=== PATIENT | male | born 1960 | race Caucasian/White ===

== ENCOUNTER 2016-12-13 01:00 | Emergency (ER) | payer BC, MEDICAID ==
[~2016-12-13] VITALS: Ht 160 cm; Wt 59.5 kg
[2016-12-13 01:09] VITALS: Ht 160 cm; Wt 59.5 kg
--- NOTE | 2016-12-13 02:25 | ERD ---
ER Documentation Chief Complaint Date/Time DATE: 12/13/16 TIME: 02:23 Chief Complaint sp trip and fall, right arm pain/ injury, limited movement HPI 56-year-old male presents here in emergency department for complaints of right hand right forearm right elbow pain after falling on it today, fell on it this morning, is complaining of pain and swelling of affected area throbbing pain,8/ 10 scale, is worse upon movement. Patient denies any deformity. Patient denies any numbness or tingling. Patient took some Vicodin for pain with mild relief. ROS All systems reviewed and are negative except as per history of present illness. Medications Home Meds Reported Medications [none] Unknown Strength No Conflict Check 12/13/16 Allergies Allergies: Coded Allergies: No Known Allergy (Unverified , 12/13/16) PMhx/Soc Medical and Surgical Hx: pt denies Medical Hx, pt denies Surgical Hx Hx Alcohol Use: Yes (social) Hx Substance Use: Yes Hx Tobacco Use: Yes Smoking Status: Current every day smoker FmHx Family History: No coronary disease, No diabetes, No other Physical Exam Vitals Vital Signs Date Time Temp Pulse Resp B/P Pulse Ox O2 Delivery O2 Flow Rate FiO2 12/13/16 01:09 97.8 106 20 112/69 99 Physical Exam GENERAL: The patient is well developed and appropriate for usual state of health, in no apparent distress. CHEST: Clear to auscultation bilaterally. There are no rales, wheezes or rhonchi. HEART: Regular rate and rhythm. No murmurs, clicks, rubs or gallops. No S3 or S4. ABDOMEN: Soft, nontender and nondistended. Good bowel sounds. No rebound or guarding. No gross peritonitis. No gross organomegaly or masses. No Rojas sign or McBurney point tenderness. BACK: No midline or flank tenderness. EXTREMITIES: No visible patient and the right hand palmar aspect right forearm midforearm, with swelling noted, and right elbow, limitation movement of the right wrist right elbow because of the pain and swelling. No obvious deformity noted. Equal pulses bilaterally. Full range of motion of other joints of the body. Grossly neurovascularly intact. NEURO: Alert and oriented. Cranial nerves 2-12 intact. Motor strength in all 4 extremities with 5/5 strength. Sensation grossly intact. Normal speech and gait. SKIN: There is no apparent rash or petechia. The skin is warm and dry. HEMATOLOGIC AND LYMPHATIC: There is no evidence of excessive bruising or lymphedema. No gross cervical, axillary, or inguinal lymphadenopathy. Results 24 hrs Current Medications Medications (Trade) Dose Ordered Sig/Whitney Route PRN Reason Start Time Stop Time Status Last Admin Dose Admin Ibuprofen (Motrin) 600 mg ONCE ONCE PO 12/13/16 02:30 12/13/16 02:31 DC 12/13/16 02:18 Acetaminophen/ Hydrocodone Bitart ([place] ()) 1 tab ONCE ONCE PO 12/13/16 02:30 12/13/16 02:31 DC 12/13/16 02:19 Patient was given medication for pain here in emergency department, after treatment, patient verbalized feeling much better. Patient's pain is improved. PROCEDURE: XR Right Elbow. CLINICAL INDICATION: Pain TECHNIQUE: AP, lateral and oblique views of the right elbow performed. COMPARISON: None. FINDINGS: There is normal mineralization and alignment. No fracture or osseous lesion is identified. There is no significant joint space narrowing. The soft tissues are unremarkable. IMPRESSION: Unremarkable examination. RPTAT: HJES .Freddy Oneill MD, Date Time Electronically viewed and signed by .Freddy Oneill MD, MD on 12/13/2016 04:10 .S/ CC: ELI LAZO NP PROCEDURE: XR Forearm. CLINICAL INDICATION: Pain , trauma TECHNIQUE: AP and lateral views of the right forearm were obtained. COMPARISON: No prior studies are available for comparison. FINDINGS: There is a comminuted fracture of the distal ulna with approximate 2 mm ulnar displacement of the main distal fragment. IMPRESSION: Comminuted fracture of the distal ulna with approximate 2 mm ulnar displacement of the main distal fragment. RPTAT: HJES .Freddy Oneill MD, MD Date Time Electronically viewed and signed by .Freddy Oneill MD, MD on 12/13/2016 04:09 .S/ CC: ELI LAZO NP PROCEDURE: XR Hand. CLINICAL INDICATION: Pain, trauma TECHNIQUE: AP oblique and lateral views of the right hand were obtained. COMPARISON: No prior studies are available for comparison. FINDINGS: Comminuted fracture of the distal ulna with approximate 3 mm ulnar displacement of the main distal fragment. The fourth finger appears to be held in flexion at the proximal interphalangeal joint. Minimal osteoarthrosis apparent at first carpometacarpal joint. IMPRESSION: Comminuted fracture of the distal ulna with approximate 3 mm ulnar displacement of the main distal fragment. The fourth finger appears to be held in flexion at the proximal interphalangeal joint. RPTAT: HJES .Freddy Oneill MD, MD Date Time Electronically viewed and signed by .Freddy Oneill MD, MD on 12/13/2016 04:12 .S/ CC: ELI LAZO NP After receiving patients xray report, a sugar tong splint was applied on the patients left arm. After application of the splint, patient has intact sensation and circulation on distal area of the affected joint. Patient does not complain of numbness or tingling after application of the splint. Patient tolerated procedure well.Sling was given to use afterwards Procedures/MDM Medical Decision Making: Patient's pain is most likely consistent with a fracture noted in the distal ulna, also from elbow contusion and head contusion. There is no suspicion for neurovascular compromise. Patient has intact sensation and circulation of the affected extremity. There is low suspicion for septic arthritis. Patient does not have any fever. Radiology exams of the affected area does not show any dislocation. Disposition: Home. Patient is given prescription for ibuprofen for mild to moderate pain, [place] for severe pain. Patient was advised to elevate the affected area and apply ice on affected area. Patient was advised that if symptoms are worse, numbness, tingling, high fever, unable to move joint, worsening symptoms, to return to emergency department immediately. Otherwise, patient is advised to follow up with the primary care doctor in 5-7 days for reevaluation of symptoms. See orthopedic doctor for possible repair and further treatment. If the splint and sling as prescribed until seen orthopedic doctor. Departure Diagnosis: Primary Impression: Distal end of ulna fracture, closed Encounter type: initial encounter Fracture morphology: other fracture Laterality: right Qualified Code: S52.691A - Other closed fracture of distal end of right ulna, initial encounter Additional Impressions: Elbow contusion Encounter type: initial encounter Laterality: right Qualified Code: S50.01XA - Contusion of right elbow, initial encounter Hand contusion Encounter type: initial encounter Laterality: right Qualified Code: S60.221A - Contusion of right hand, initial encounter Condition: Stable Patient Instructions: Contusion, Elbow, Contusion, Hand, Fracture, Wrist [ General] Additional Instructions: Patient is given prescription for ibuprofen for mild to moderate pain, [place] for severe pain. Patient was advised to elevate the affected area and apply ice on affected area. Patient was advised that if symptoms are worse, numbness, tingling, high fever, unable to move joint, worsening symptoms, to return to emergency department immediately. Otherwise, patient is advised to follow up with the primary care doctor in 5-7 days for reevaluation of symptoms. See orthopedic doctor for possible repair and further treatment. If the splint and sling as prescribed until seen orthopedic doctor. ELI LAZO NP Dec 13, 2016 02:25
[2016-12-13] MEDS ORDERED: HYDROCODONE/APAP (10/325) TAB PO ONE (02:30)
[2016-12-13] MEDS ORDERED: IBUPROFEN 600 MG TAB PO ONE (02:30)
--- NOTE | 2016-12-13 04:09 | RADRPT ---
PROCEDURE: XR Forearm. CLINICAL INDICATION: Pain , trauma TECHNIQUE: AP and lateral views of the right forearm were obtained. COMPARISON: No prior studies are available for comparison. FINDINGS: There is a comminuted fracture of the distal ulna with approximate 2 mm ulnar displacement of the ma in distal fragment. IMPRESSION: Comminuted fracture of the distal ulna with approximate 2 mm ulnar displacement of the main distal fragment. RPTAT: HJES .Freddy Oneill MD, MD Date Time Electronically viewed and signed by .Freddy Oneill MD, on 12/13/2016 04:09 .S/
--- NOTE | 2016-12-13 04:10 | RADRPT ---
PROCEDURE: XR Right Elbow. CLINICAL INDICATION: Pain TECHNIQUE: AP, lateral and oblique views of the right elbow performed. COMPARISON: None. FINDINGS: There is normal mineralization and alignment. No fracture or osseous lesion is identified. There is no significant joint space narrowing. The soft tissues are unremarkable. IMPRESSION: Unremarkable examination. RPTAT: HJES .Freddy Oneill MD, MD Date Time Electronically viewed and signed by .Freddy Oneill MD, on 12/13/2016 04:10 .S/
--- NOTE | 2016-12-13 04:12 | RADRPT ---
PROCEDURE: XR Hand. CLINICAL INDICATION: Pain, trauma TECHNIQUE: AP oblique and lateral views of the right hand were obtained. COMPARISON: No prior studies are available for comparison. FINDINGS: Comminuted fracture of the distal ulna with approximate 3 mm ulnar displacement of the main distal f ragment. The fourth finger appears to be held in flexion at the proximal interphalangeal joint. Min imal osteoarthrosis apparent at first carpometacarpal joint. IMPRESSION: Comminuted fracture of the distal ulna with approximate 3 mm ulnar displacement of the main distal f ragment. The fourth finger appears to be held in flexion at the proximal interphalangeal joint. RPTAT: HJES .Freddy Oneill MD, MD Date Time Electronically viewed and signed by .Freddy Oneill MD, on 12/13/2016 04:12 .S/
[2016-12-13] MEDS ORDERED: IBUP-1542 PO (04:29)
[2016-12-13] MEDS ORDERED: HYDR-906 PO (04:29)
== END 2016-12-13 05:01 | disposition home or self-care (01) ==
LOC: FTE 01:00
DX: S52.691A Other fracture of lower end of right ulna, initial encounter for closed fracture (principal); S50.01XA Contusion of right elbow, initial encounter; S60.221A Contusion of right hand, initial encounter; F17.210 Nicotine dependence, cigarettes, uncomplicated; W01.0XXA Fall on same level from slipping, tripping and stumbling without subsequent striking against object, initial encounter; Y92.9 Unspecified place or not applicable
CPT/HCPCS: 29125; 73080; 73090; 73130; Z7610

== ENCOUNTER 2017-06-26 19:09 | Inpatient (IN) | payer MEDICAID ==
[~2017-06-26] VITALS: Ht 170.2 cm; Wt 58.1 kg
[~2017-06-26 19:09] MED LIST: HYDR-906 PO; IBUP-1542 PO
[2017-06-26] MEDS ORDERED: SODIUM CHLORIDE 0.9% 1L BAG IV* STA (21:00)
[2017-06-26] MEDS ORDERED: ACETAMINOPHEN 500 MG TAB PO STA (21:01)
[2017-06-26] MEDS ORDERED: KETOROLAC 30 MG INJ IV STA (21:01)
--- NOTE | 2017-06-26 21:07 | ERD ---
ER Documentation Chief Complaint Chief Complaint Cough, body aches, flank pain HPI The patient is a 56-year-old male who presents to the Emergency Department with complaint of fevers, body aches, chills, cough and flank pain. The patient reports that in symptoms initially began 2-3 days ago, with onset of myalgias, and bilateral, aching, constant flank pain. He also reports associated productive cough for the past 2 days, with thick yellow-colored sputum. He admits to associated fevers, chills and generalized weakness. Denies any hemoptysis. Denies chest pain, palpitations or shortness of breath. Denies lower extremity edema, calf swelling or calf tenderness. Denies headache, dizziness, visual changes, sore throat, neck pain, neck stiffness, new rashes, ear pain. Denies abdominal pain, nausea, vomiting, diarrhea. Denies black or bloody stools. Denies dysuria, hematuria, urethral discharge, testicular pain or swelling. The patient reports that he was recently visiting a friend who is in hospice, who was recently diagnosed with pneumonia. His symptoms began shortly after that visit. ROS All systems reviewed and are negative except as per history of present illness. Medications Home Meds Active Scripts Hydrocodone/Acetaminophen ([place] 5-325 Tablet) 1 Each Tablet, 1 TAB PO Q6H Y for SEVERE PAIN LEVEL 7-10, #20 TAB Prov:ELI LAZO NP 12/13/16 Ibuprofen* (Motrin*) 600 Mg Tab, 600 MG PO Q6H Y for PAIN AND OR ELEVATED TEMP, #30 TAB Prov:ELI LAZO NP 12/13/16 Reported Medications [none] Unknown Strength No Conflict Check 12/13/16 Allergies Allergies: Coded Allergies: No Known Allergy (Unverified , 12/13/16) PMhx/Soc Medical and Surgical Hx: pt denies Medical Hx, pt denies Surgical Hx Hx Alcohol Use: Yes (social) Hx Substance Use: Yes Hx Tobacco Use: Yes Smoking Status: Current every day smoker Physical Exam Vitals Vital Signs Date Time Temp Pulse Resp B/P Pulse Ox O2 Delivery O2 Flow Rate FiO2 06/27/17 00:28 78 16 115/81 97 Nasal Cannula 2.0 06/26/17 22:45 99.9 102 20 116/86 96 Nasal Cannula 2.0 06/26/17 21:22 Nasal Cannula 2 06/26/17 19:25 100.5 139 22 117/75 92 Physical Exam GENERAL: Well-developed, well-nourished, male, in no acute distress. Ill- appearing. HEENT: Head is normocephalic, atraumatic. No scleral pallor or icterus. Pupils equal, round and reactive to light. Extraocular movements intact. Conjunctiva pink. Bilaterally tympanic membranes are clear with no evidence of erythema, effusion or dulling of the light reflex. Moist mucous membranes. No pharyngeal erythema or exudates. NECK: Supple. No masses, no tenderness, no lymphadenopathy. Trachea midline. No nuchal rigidity. No meningismus. RESPIRATORY: Decreased breath sounds at the bases with few rales bilaterally. No wheezing. Symmetrical expansion. Normal respiratory effort. CARDIOVASCULAR: Tachycardic. Regular rhythm. S1 and S2 normal. Distal pulses are palpable, 2+ bilaterally. Capillary refill is less than 2 seconds. GASTROINTESTINAL: Abdomen is soft, non-tender, and non-distended. No guarding, no rebound tenderness. Normal bowel sounds. No gross peritonitis. FLANK: No CVA tenderness. BACK: No midline tenderness. EXTREMITIES: No clubbing, cyanosis, or edema. Normal skin perfusion. Moving all extremities. Muscle tone is normal. No focal swelling or erythema. NEUROLOGIC: The patient is alert, awake, and oriented x 3. No focal neurologic deficits. INTEGUMENT: Skin is intact. Warm and dry. No rashes, no petechiae present. Normal turgor. PSYCHIATRIC: Cooperative. Appropriate. Result Diagram: 06/26/17 2100 06/26/17 2100 Results 24 hrs Laboratory Tests Test 06/26/17 21:00 06/26/17 21:15 06/26/17 23:00 White Blood Count 16.010^3/ul Red Blood Count 4.9610^6/ul Hemoglobin 14.9g/dl Hematocrit 44.1% Mean Corpuscular Volume 88.9fl Mean Corpuscular Hemoglobin 30.0pg Mean Corpuscular Hemoglobin Concent 33.8g/dl Red Cell Distribution Width 12.7% Platelet Count 63388^3/UL Mean Platelet Volume 10.4fl Neutrophils % 83.3% Lymphocytes % 9.5% Monocytes % 6.3% Eosinophils % 0.0% Basophils % 0.3% Nucleated Red Blood Cells % 0.0/100WBC Neutrophils # 13.310^3/ul Lymphocytes # 1.510^3/ul Monocytes # 1.010^3/ul Eosinophils # 0.010^3/ul Basophils # 0.010^3/ul Nucleated Red Blood Cells # 0.010^3/ul Prothrombin Time 13.0Sec Prothrombin Time Ratio 1.0 INR International Normalized Ratio 0.98 Activated Partial Thromboplast Time 29.8Sec Sodium Level 138mmol/L Potassium Level 4.2mmol/L Chloride Level 99mmol/L Carbon Dioxide Level 27mmol/L Anion Gap 16 Blood Urea Nitrogen 16mg/dl Creatinine 1.00mg/dl Glucose Level 123mg/dl Calcium Level 9.3mg/dl Total Bilirubin 1.3mg/dl Direct Bilirubin 0.00mg/dl Indirect Bilirubin 1.3mg/dl Aspartate Amino Transf (AST/SGOT) 38IU/L Alanine Aminotransferase (ALT/SGPT) 78IU/L Alkaline Phosphatase 96IU/L Troponin I < 0.012ng/ml Total Protein 8.4g/dl Albumin 4.3g/dl Globulin 4.10g/dl Albumin/Globulin Ratio 1.04 Urine Color DAVID Urine Clarity CLEAR Urine pH 5.0 Urine Specific [place] 1.024 Urine Ketones TRACEmg/dL Urine Nitrite NEGATIVEmg/dL Urine Bilirubin NEGATIVEmg/dL Urine Urobilinogen 2+mg/dL Urine Leukocyte Esterase NEGATIVELeu/ul Urine Microscopic RBC 0/HPF Urine Microscopic WBC 1/HPF Urine Mucus FEW/HPF Urine Hemoglobin NEGATIVEmg/dL Urine Glucose NEGATIVEmg/dL Urine Total Protein 1+mg/dl Lactic Acid Level 2.1mmol/L 1.0mmol/L Current Medications Medications (Trade) Dose Ordered Sig/Whitney Route PRN Reason Start Time Stop Time Status Last Admin Dose Admin Sodium Chloride (NS) 1,780 ml BOLUS OVER 2 HOURS STAT IV* 06/26/17 21:00 06/26/17 21:02 DC 06/26/17 21:23 Ketorolac Tromethamine (Toradol) 30 mg ONCE STAT IV 06/26/17 21:01 06/26/17 21:02 DC 06/26/17 21:23 Acetaminophen 1000 mg 1,000 mg ONCE STAT PO 06/26/17 21:01 06/26/17 21:02 DC 06/26/17 21:23 Ceftriaxone Sodium 50 ml @ 100 mls/hr ONCE STAT IVPB 06/26/17 22:03 06/26/17 22:33 DC 06/26/17 22:12 Azithromycin (Zithromax 500mg/ NS (Pmx)) 250 ml @ 250 mls/hr ONCE ONCE IVPB 06/26/17 22:30 06/26/17 23:29 DC 06/26/17 22:45 Ondansetron HCl (Zofran Inj) 4 mg BRIDGE ORDER PRN IV NAUSEA AND/OR VOMITING 06/26/17 22:30 06/27/17 22:29 Acetaminophen (Tylenol Tab) 650 mg ER BRIDGE PRN PO MILD PAIN/FEVER 06/26/17 22:30 06/27/17 22:29 Morphine Sulfate (morphine) 4 mg ONCE STAT IV 06/26/17 22:57 06/26/17 22:58 DC 06/26/17 23:00 Procedures/MDM Diagnostic Tests and Interpretation: PROCEDURE: XR Chest. CLINICAL INDICATION: Possible sepsis. TECHNIQUE: Single frontal view of the chest. COMPARISON: None. FINDINGS:The cardiomediastinal silhouette is within normal limits. Airspace disease at the inferior segments of the right upper lobe. Mild left lung base atelectasis versus airspace disease.. No signs of pleural fluid or pneumothorax are seen. The osseous structures and soft tissues are unremarkable. IMPRESSION:Pneumonia at the inferior segments of the right upper lobe. Physician Sai Date Time Electronically viewed and signed by Physician Sai on 06/26/2017 22:53 PROCEDURE: CT Abdomen and Pelvis without contrast. CLINICAL INDICATION: Flank pain. TECHNIQUE: A CT scan of the abdomen and pelvis was performed without intravenous contrast. Coronal and sagittal reformatted images were generated. Images were reviewed on a high-resolution PACS workstation. CTDIvol: 7.43 mGy. DLP: 351.77 mGy-cm. One or more of the following dose reduction techniques were used: - Automated exposure control. - Adjustment of the mA and/or kV according to patient size. - Use of iterative reconstruction technique. COMPARISON: None. FINDINGS: There are tree in bud nodules and patchy airspace opacities in the right middle and bilateral lower lobes. Evaluation of the abdominal and pelvic viscera is limited by the lack of oral and intravenous contrast. The liver is unremarkable. There is layering high attenuation in the gallbladder. The common bile duct is not dilated. The spleen is not enlarged. No pancreatic lesion is identified and there is no pancreatic ductal dilatation. The adrenal glands are unremarkable. The kidneys are normal in size. There is no perinephric fat stranding. No hydronephrosis is seen. There is a 3 mm nonobstructing stone in the right kidney. The small and large bowel are normal in caliber. There is no bowel wall thickening. The appendix is normal. The urinary bladder is unremarkable. The pelvic organs are within normal limits. No lymphadenopathy is identified. There is no ascites. No pneumoperitoneum is seen. There are minimal arterial calcifications. No suspicious osseous lesion is idenitified. IMPRESSION: 1. Tree in bud nodules and patchy airspace opacities in the right middle and bilateral lower lobes, suspicious for bronchopneumonia. 2. No intra-abdominal inflammation, mass, or lymphadenopathy. 3. No hydronephrosis. There is a 3 mm nonobstructing right renal stone. 4. Normal appendix. .Judah Escalera MD, MD Date Time Electronically viewed and signed by .Judah Escalera MD, on 06/26/2017 21:52 EKG Reviewed and interpreted by: Dr. Lara EKG Interpretation: Sinus tachycardia. 115 bpm. Normal axis. No ST-segment elevations. No ectopy. Medical Decision Making: This is a 56-year-old male presenting to the Emergency Department with complaint of fevers, productive cough and flank pain. On physical examination, he had rales to the lower lung hadley, with mildly decreased breath sounds. He was febrile, tachycardic on arrival, with O2 saturation of 92% on room air. Chest x-ray revealed airspace disease at the inferior segments of the right upper lobe, consistent with pneumonia. CT imaging reveal tree in bud nodules and patchy airspace opacities in the right middle and bilateral lower lobes, suspicious for bronchopneumonia. Patient was wiley-cultured. 30 cc/kg crystalloid fluid bolus administered. Empiric antibiotics, Rocephin and Azithromycin, were administered. Patient had leukocytosis of 16,000. Lactic acid was 2.1, consistent with severe sepsis. Otherwise, no evidence of septic shock or respiratory distress. At this time he will be admitted to panel/hospitalist, Dr. Cohn, for further evaluation and treatment. Patient's infectious symptoms have not stabilized and the patient is at risk of rapid decompensation. The patient will be admitted for careful hydration, antibiotic therapy, and infectious source control. Severe Sepsis Assessment: Infectious Source: Pneumonia End organ damage indicated by: Lactate > 2.0 mmol/L Severe Sepsis Management: Blood Cultures X 2 before broad spectrum antibiotics initiated within 3 hours of recognition. 30 ml/kg NS bolus Completed Initial Lactate: 2.1 Repeat Lactate 1.0 Critical Care: Time: 40 minutes Treatments/Evaluations: Emergent fluid management, while maintaining close respiratory support. Immediate broad spectrum antibiotic therapy. Simultaneous assessment for possible sources in order to direct therapy. Consideration for invasive and chemical support to prevent respiratory or cardiac collapse. Septic Shock Assessment (1 hour post 30 ml/kg fluid bolus): Hypotension (SBP < 90 or 40 mmHg drop, MAP < 65): No Lactic acid > 4.0 No Accepting Care Team: Current data and ongoing care discussed. Time: 22:30 Primary Provider: Dr. Cohn Outstanding Data: Culture results Departure Diagnosis: Primary Impression: Severe sepsis Additional Impression: Pneumonia Pneumonia type: due to unspecified organism Laterality: right Lung location : upper lobe of lung Qualified Code: J18.1 - Pneumonia of right upper lobe due to infectious organism Condition: Serious AMERICO YOUNG PA-C Jun 26, 2017 21:07 AMERICO YOUNG PA-C Jun 26, 2017 21:07
[2017-06-26 21:25] LABS: BASOPHILS % 0.3 % (0.0-2.0); HEMATOCRIT 44.1 % (42.0-52.0); HEMOGLOBIN 14.9 g/dl (14.0-18.0); LYMPHOCYTES # 1.5 10^3/ul (0.8-2.9); LYMPHOCYTES % 9.5 % (15.0-51.0); MEAN CORPUSCULAR HGB CONC 33.8 g/dl (32.0-37.0); MEAN CORPUSCULAR VOLUME 88.9 fl (82.0-101.0); MEAN PLATELET VOLUME 10.4 fl (7.4-10.4); MONOCYTES % 6.3 % (0.0-11.0); NEUTROPHIL # 13.3 10^3/ul (1.6-7.5); NEUTROPHILS % 83.3 % (39.0-77.0); PLATELET COUNT 225 10^3/UL (140-415); RED BLOOD COUNT 4.96 10^6/ul (4.70-6.10); RED CELL DISTRIBUTION WIDTH 12.7 % (11.5-14.5)
[2017-06-26 21:31] LABS: ADD UMIC YES; UR ASCORBIC ACID NEGATIVE (NEGATIVE); UR BILIRUBIN (Dip) NEGATIVE (NEGATIVE); UR BLOOD (Dip) NEGATIVE (NEGATIVE); UR CLARITY CLEAR (CLEAR); UR COLOR AMBER (YELLOW); UR GLUCOSE (Dip) NEGATIVE (NEGATIVE); UR KETONES (Dip) TRACE mg/dL (NEGATIVE); UR LEUKOCYTE ESTERASE (Dip) NEGATIVE Leu/ul (NEGATIVE); UR MUCUS FEW /HPF (NONE SEEN); UR NITRITE (Dip) NEGATIVE (NEGATIVE); UR RBC 0 /HPF (0-5); UR SPECIFIC GRAVITY (Dip) 1.024 (1.003-1.030); UR TOTAL PROTEIN (Dip) 1+ mg/dl (NEGATIVE); UR UROBILINOGEN (Dip) 2+ mg/dL (NEGATIVE)
[2017-06-26 21:46] LABS: INR 0.98
[2017-06-26 21:47] LABS: PARTIAL THROMBOPLASTIN TIME 29.8 Sec (25.0-35.0)
--- NOTE | 2017-06-26 21:53 | RADRPT ---
PROCEDURE: CT Abdomen and Pelvis without contrast. CLINICAL INDICATION: Flank pain. TECHNIQUE: A CT scan of the abdomen and pelvis was performed without intravenous contrast. Tolent[place] l and sagittal reformatted images were generated. Images were reviewed on a high-resolution PACS wor kstation. CTDIvol: 7.43 mGy. DLP: 351.77 mGy-cm. One or more of the following dose reduction techniques were used: - Automated exposure control. - Adjustment of the mA and/or kV according to patient size. - Use of iterative reconstruction technique. COMPARISON: None. FINDINGS: There are tree in bud nodules and patchy airspace opacities in the right middle and bilateral lower lobes. Evaluation of the abdominal and pelvic viscera is limited by the lack of oral and intravenous contra st. The liver is unremarkable. There is layering high attenuation in the gallbladder. The common bile du ct is not dilated. The spleen is not enlarged. No pancreatic lesion is identified and there is no pa ncreatic ductal dilatation. The adrenal glands are unremarkable. The kidneys are normal in size. There is no perinephric fat stranding. No hydronephrosis is seen. Th ere is a 3 mm nonobstructing stone in the right kidney. The small and large bowel are normal in caliber. There is no bowel wall thickening. The appendix is normal. The urinary bladder is unremarkable. The pelvic organs are within normal limits. No lymphadenopathy is identified. There is no ascites. No pneumoperitoneum is seen. There are minima l arterial calcifications. No suspicious osseous lesion is idenitified. IMPRESSION: 1. Tree in bud nodules and patchy airspace opacities in the right middle and bilateral lower lobes, suspicious for bronchopneumonia. 2. No intra-abdominal inflammation, mass, or lymphadenopathy. 3. No hydronephrosis. There is a 3 mm nonobstructing right renal stone. 4. Normal appendix. RPTAT: HTAR .Judah Escalera MD, Date Time Electronically viewed and signed by .Judah Escalera MD, on 06/26/2017 21:52 .R/
[2017-06-26 21:54] LABS: ALANINE AMINOTRANSFERASE 78 IU/L (13-69); ALBUMIN 4.3 g/dl (3.3-4.9); ALBUMIN/GLOBULIN RATIO 1.04; ALKALINE PHOSPHATASE 96 IU/L (42-121); ANION GAP 16 (8-16); ASPARTATE AMINO TRANSFERASE 38 IU/L (15-46); BILIRUBIN,INDIRECT 1.3 mg/dl (0-1.1); BILIRUBIN,TOTAL 1.3 mg/dl (0.2-1.3); BLOOD UREA NITROGEN 16 mg/dl (7-20); CALCIUM 9.3 mg/dl (8.4-10.2); CARBON DIOXIDE 27 mmol/L (21-31); CHLORIDE 99 mmol/L (97-110); GLUCOSE 123 mg/dl (70-220); POTASSIUM 4.2 mmol/L (3.5-5.1); SODIUM 138 mmol/L (135-144); TOTAL PROTEIN 8.4 g/dl (6.1-8.1)
[2017-06-26] MEDS ORDERED: CEFTRIAXONE 1 GM/50 ML (PMX) 50 ML IVPB STA (22:03)
[2017-06-26 22:06] LABS: TROPONIN-I < 0.012 ng/ml (0.00-0.12)
[2017-06-26] MEDS ORDERED: ACETAMINOPHEN 325 MG TAB PO PRN (22:30)
[2017-06-26] MEDS ORDERED: AZITHROMYCIN 500MG/NS (PMX) 250 ML IVPB ONE (22:30)
[2017-06-26] MEDS ORDERED: ONDANSETRON 4 MG INJ IV PRN (22:30)
[2017-06-26 22:45] VITALS: TEMP 99.9
--- NOTE | 2017-06-26 22:53 | RADRPT ---
PROCEDURE: XR Chest. CLINICAL INDICATION: Possible sepsis. TECHNIQUE: Single frontal view of the chest. COMPARISON: None. FINDINGS: The cardiomediastinal silhouette is within normal limits. Airspace disease at the inferior segments of the right upper lobe. Mild left lung base atelectasis versus airspace disease.. No signs of pleur al fluid or pneumothorax are seen. The osseous structures and soft tissues are unremarkable. IMPRESSION: Pneumonia at the inferior segments of the right upper lobe. RPTAT: UU Physician Sai Date Time Electronically viewed and signed by Physician Sai on 06/26/2017 22:53 RS/
[2017-06-26] MEDS ORDERED: morphine 4 MG/ML VIAL IV STA (22:57)
[2017-06-27 00:45] VITALS: BP 119/74; PULSE 95; RESP 19; Ht 170.2 cm; Wt 58.1 kg
[2017-06-27] MEDS ORDERED: ACETAMINOPHEN 325 MG TAB PO PRN (01:30)
[2017-06-27] MEDS ORDERED: ONDANSETRON 4 MG INJ IV PRN (01:30)
[2017-06-27] MEDS ORDERED: IBUPROFEN 200 MG TAB PO ONE (01:30)
[2017-06-27] MEDS ORDERED: IBUPROFEN 400 MG TAB ONE (01:45)
[2017-06-27] MEDS: morphine 4 MG/ML VIAL IV PRN ×2 (01:54→17:12)
[2017-06-27] MEDS ORDERED: ACETYLCYSTEINE 20% 4 ML VIAL NEB PRN (02:30)
[2017-06-27] MEDS ORDERED: AL HYDROX/MG HYDROX/SIMETH 30 ML CUP PO ONE (02:30)
[2017-06-27] MEDS ORDERED: ALBUTEROL/IPRATROPIUM (NEB) 3 ML AMP HHN PRN ×2 (02:30→10:00)
[2017-06-27] MEDS ORDERED: ZOLPIDEM 5 MG TAB PO ONE (03:00)
[2017-06-27 04:00] VITALS: BP 124/70; PULSE 90; RESP 18
[2017-06-27 05:11] LABS: BASOPHILS % 0.2 % (0.0-2.0); EOSINOPHILS % 0.1 % (0.0-7.0); HEMATOCRIT 37.5 % (42.0-52.0); HEMOGLOBIN 12.5 g/dl (14.0-18.0); LYMPHOCYTES # 1.7 10^3/ul (0.8-2.9); LYMPHOCYTES % 12.7 % (15.0-51.0); MEAN CORPUSCULAR HGB CONC 33.3 g/dl (32.0-37.0); MEAN CORPUSCULAR VOLUME 89.9 fl (82.0-101.0); MEAN PLATELET VOLUME 11.4 fl (7.4-10.4); MONOCYTES % 7.6 % (0.0-11.0); NEUTROPHIL # 10.3 10^3/ul (1.6-7.5); NEUTROPHILS % 78.6 % (39.0-77.0); PLATELET COUNT 181 10^3/UL (140-415); RED BLOOD COUNT 4.17 10^6/ul (4.70-6.10); RED CELL DISTRIBUTION WIDTH 12.9 % (11.5-14.5); WHITE BLOOD COUNT 13.1 10^3/ul (4.8-10.8)
[2017-06-27 05:37] LABS: CALCIUM 8.3 mg/dl (8.4-10.2); CREATININE 0.9 mg/dl (0.61-1.24); MAGNESIUM 1.9 mg/dl (1.7-2.5); PHOSPHORUS 2.8 mg/dl (2.5-4.9); POTASSIUM 3.8 mmol/L (3.5-5.1)
--- NOTE | 2017-06-27 05:58 | HP ---
Date/Time of Note Date/Time of Note DATE: 06/27/17 TIME: 05:52 Assessment/Plan VTE Prophylaxis VTE Prophylaxis Intervention: SCD's Lines/Catheters IV Catheter Type (from [facility]): Saline Lock Urinary Cath still in place: No Assessment/Plan Assessment/Plan ASSESSMENT 56-year-old male presenting with cough, fever, generalized body ache was found to be septic from pneumonia PLAN IV antibiotic Follow-up culture results including respiratory culture if possible Supplemental oxygen and breathing treatments as needed HPI/ROS Admit Date/Time Admit Date/Time Jun 26, 2017 at 22:27 Hx of Present Illness This is a 56-year-old male with no significant past medical history who presented emergency department complaining of cough, fever, generalized body ache. Symptoms started about 3 days ago and has been progressively getting worse. He also reported pain in bilateral flank area. When he presented to the ER, he was febrile with a temperature of 100.5 and tachycardic with a heart rate of 139. Chest x-ray shows right-sided pneumonia. Urinalysis is negative for UTI. CT abdomen/pelvis shows findings of bronchopneumonia and a 3 mm nonobstructing calculus in the right renal pole. Labs shows WBC of 16,000. PMH/Family/Social Social History Smoking Status: Never smoker Exam/Review of Systems Vital Signs Vitals Vital Signs Date Time Temp Pulse Resp B/P Pulse Ox O2 Delivery O2 Flow Rate FiO2 06/27/17 02:45 103 21 96 Nasal Cannula 2.0 06/27/17 00:45 98.1 119/74 Intake and Output 06/26/17 06/26/17 06/27/17 14:59 22:59 06:59 Intake Total 720 ml Output Total 600 ml Balance 120 ml Exam Constitutional: other (No acute distress) Head: atraumatic, normocephalic Eyes: EOMI, PERRL Respiratory: other (Diminished breath sounds on the right lung base.) Gastrointestinal: soft, tender Extremities: normal pulses Labs Result Diagram: 06/27/172 06/26/17 2100 Medications Medications Current Medications Morphine Sulfate (morphine) 3 mg Q4 PRN IV PAIN Last administered on 06/27/17t 01:54; Admin Dose 3 MG; Start 06/27/17 at 01:30 Acetaminophen (Tylenol Tab) 650 mg Q6 PRN PO PAIN AND OR ELEVATED TEMP; Start 06/27/17 at 01:30 Ondansetron HCl 4 mg 4 mg Q6H PRN IV NAUSEA AND/OR VOMITING; Start 06/27/17 at 01:30 Levofloxacin/ Dextrose (Levaquin 500mg/ D5W 100 ml (Pmx)) 100 ml @ 100 mls/hr Q24H IVPB ; Start 06/27/17 at 09:00 Famotidine (Pepcid) 20 mg BID PO ; Start 06/27/17 at 09:00 ODETTE NICHOLSON MD Jun 27, 2017 05:58
[2017-06-27 08:30] VITALS: BP 116/80; RESP 18
[2017-06-27] MEDS: LEVOFLOXACIN 500MG/D5W (PMX) 100 ML IVPB SCH (08:45)
[2017-06-27] MEDS: FAMOTIDINE 20 MG TAB PO SCH ×2 (08:45→20:52)
--- NOTE | 2017-06-27 10:01 | PN ---
Date/Time of Note Date/Time of Note DATE: 06/27/17 TIME: 10:01 Assessment/Plan VTE Prophylaxis VTE Prophylaxis Intervention: ambulation, SCD's Lines/Catheters IV Catheter Type (from [facility]): Saline Lock Urinary Cath still in place: No Assessment/Plan Chief Complaint/Hosp Course 56-year-old male presenting with cough, fever, generalized body ache who found to have pneumonia per imaging. 1. Bronchopneumonia -Continue current antibiotic regimen with addition of kitobv-yul-[id number] bronchodilators and cough medications. Follow-up final cultures and consider ID if indicated. 2. Sepsis secondary to #1. Improving. Treatment as above. 3. Nicotine abuse. -Cessation advised. 4. Methamphetamine abuse. -Cessation advised. Plan: Follow-up with cultures. Continue antibiotics. Monitor for clinical improvement symptoms. Patient was seen in collaboration with . Problems: Subjective 24 Hr Interval Summary Free Text/Dictation Patient with cough. He also had episode of nonbilious, nonbloody vomiting this morning. Patient also had nausea. He denied any chest pain, palpitation, shortness of breath or other constitutional symptoms. Exam/Review of Systems Vital Signs Vitals Vital Signs Date Time Temp Pulse Resp B/P Pulse Ox O2 Delivery O2 Flow Rate FiO2 06/27/17 08:30 98.8 67 18 116/80 96 06/27/17 07:47 2.0 06/27/17 04:00 Room Air Intake and Output 06/26/17 06/26/17 06/27/17 14:59 22:59 06:59 Intake Total 720 ml Output Total 600 ml Balance 120 ml Exam General: Thin built, chronically ill looking male, not in any acute distress . HEENT: Normocephalic, Atraumatic, No laceration or hematoma; Eyes: PEERL, Conjunctiva clear, Anicteric sclera Neck: Supple without any lymphadenopathy, nontender, no JVD, no carotid bruits, trachea midline, no thyromegaly Cardiac: S1, S2 auscultated, regular rhythm and rate, no mumurs or gallop Pulmonary: Diminished breath sound bibasilar. Chest clear to auscultation bilaterally, no adventitious breath sounds GI: Abdomen normal to inspection. Soft, non tender, non- distended, no masses, no rebound tenderness or guarding. Bowel sounds active on all four quadrants Genitourinary: Deferred Extremities: No cyanosis, clubbing, or edema. Pulses [2+] bilaterally. Full ROM on all four extremities. No focal weakness appreciated. Neurologic: Alert to person, place, time, and situation. Affect appropriate, intact sensation. Skin: Clean,dry, and intact. No ecchymosis, no rashes, or lesions Results Result Diagram: 06/27/17 0422 06/27/17 0422 Results 24 hrs Laboratory Tests Test 06/26/17 21:00 06/26/17 21:15 06/26/17 23:00 06/27/17 02:10 White Blood Count 16.0 H Red Blood Count 4.96 Hemoglobin 14.9 Hematocrit 44.1 Mean Corpuscular Volume 88.9 Mean Corpuscular Hemoglobin 30.0 Mean Corpuscular Hemoglobin Concent 33.8 Red Cell Distribution Width 12.7 Platelet Count 225 Mean Platelet Volume 10.4 Neutrophils % 83.3 H Lymphocytes % 9.5 L Monocytes % 6.3 Eosinophils % 0.0 Basophils % 0.3 Nucleated Red Blood Cells % 0.0 Neutrophils # 13.3 H Lymphocytes # 1.5 Monocytes # 1.0 H Eosinophils # 0.0 Basophils # 0.0 Nucleated Red Blood Cells # 0.0 Prothrombin Time 13.0 Prothrombin Time Ratio 1.0 INR International Normalized Ratio 0.98 Activated Partial Thromboplast Time 29.8 Sodium Level 138 Potassium Level 4.2 Chloride Level 99 Carbon Dioxide Level 27 Anion Gap 16 Blood Urea Nitrogen 16 Creatinine 1.00 Glucose Level 123 Calcium Level 9.3 Total Bilirubin 1.3 Direct Bilirubin 0.00 Indirect Bilirubin 1.3 H Aspartate Amino Transf (AST/SGOT) 38 Alanine Aminotransferase (ALT/SGPT) 78 H Alkaline Phosphatase 96 Troponin I < 0.012 Total Protein 8.4 H Albumin 4.3 Globulin 4.10 H Albumin/Globulin Ratio 1.04 Urine Color DAVID Urine Clarity CLEAR Urine pH 5.0 Urine Specific [place] Level 1.024 Urine Ketones TRACE A Urine Nitrite NEGATIVE Urine Bilirubin NEGATIVE Urine Urobilinogen 2+ H Urine Leukocyte Esterase NEGATIVE Urine Microscopic RBC 0 Urine Microscopic WBC 1 Urine Mucus FEW A Urine Hemoglobin NEGATIVE Urine Glucose NEGATIVE Urine Total Protein 1+ H Lactic Acid Level 2.1 H 1.0 1.6 Test 06/27/17 04:22 White Blood Count 13.1 H Red Blood Count 4.17 L Hemoglobin 12.5 L Hematocrit 37.5 L Mean Corpuscular Volume 89.9 Mean Corpuscular Hemoglobin 30.0 Mean Corpuscular Hemoglobin Concent 33.3 Red Cell Distribution Width 12.9 Platelet Count 181 Mean Platelet Volume 11.4 H Neutrophils % 78.6 H Lymphocytes % 12.7 L Monocytes % 7.6 Eosinophils % 0.1 Basophils % 0.2 Nucleated Red Blood Cells % 0.0 Neutrophils # 10.3 H Lymphocytes # 1.7 Monocytes # 1.0 H Eosinophils # 0.0 Basophils # 0.0 Nucleated Red Blood Cells # 0.0 Sodium Level 140 Potassium Level 3.8 Chloride Level 105 Carbon Dioxide Level 27 Anion Gap 12 Blood Urea Nitrogen 15 Creatinine 0.90 Glucose Level 127 Calcium Level 8.3 L Phosphorus Level 2.8 Magnesium Level 1.9 Medications Medications Current Medications Morphine Sulfate (morphine) 3 mg Q4 PRN IV PAIN Last administered on 06/27/17 01:54; Admin Dose 3 MG; Start 06/27/17 at 01:30 Acetaminophen (Tylenol Tab) 650 mg Q6 PRN PO PAIN AND OR ELEVATED TEMP; Start 06/27/17 at 01:30 Ondansetron HCl 4 mg 4 mg Q6H PRN IV NAUSEA AND/OR VOMITING Last administered on 06/27/17 09:57; Admin Dose 4 MG; Start 06/27/17 at 01:30 Levofloxacin/ Dextrose (Levaquin 500mg/ D5W 100 ml (Pmx)) 100 ml @ 100 mls/hr Q24H IVPB Last administered on 06/27/17 08:45; Admin Dose 100 MLS/HR; Start 06/27/17 at 09:00 Famotidine (Pepcid) 20 mg BID PO Last administered on 06/27/17 08:45; Admin Dose 20 MG; Start 06/27/17 at 09:00 Guaifenesin/ Dextromethorphan 10 ml 10 ml Q4H PRN PO cough; Start 06/27/17 at 10:00; Status UNV Sodium Chloride (NS) 1,000 ml @ 75 mls/hr [id number] IV ; Start 06/27/17 at 10:00 ; Status UNV Metoclopramide HCl (Reglan) 10 mg Q6 IV ; Start 06/27/17 at 12:00; Status UNV VELÁZQUEZDANIELA RICHARDSON NP Jun 27, 2017 10:01
[2017-06-27] MEDS: SOD CHLORIDE 0.9% 1,000 ML IV SCH ×2 (10:44→23:20)
[2017-06-27] MEDS: METOCLOPRAMIDE 10 MG INJ IV SCH ×2 (11:34→17:12)
[2017-06-27] MEDS ORDERED: IBUPROFEN 600 MG TAB NGT PRN (12:00)
[2017-06-27 16:00] VITALS: BP 92/57; RESP 18
[2017-06-27 20:43] VITALS: BP 91/57; RESP 20
[2017-06-28] MEDS: METOCLOPRAMIDE 10 MG INJ IV SCH ×4 (01:09→17:38)
[2017-06-28 02:19] VITALS: BP 100/70; RESP 18
[2017-06-28 05:09] LABS: BASOPHILS % 0.3 % (0.0-2.0); EOSINOPHILS # 0.1 10^3/ul (0.0-0.5); EOSINOPHILS % 1.1 % (0.0-7.0); HEMATOCRIT 38.3 % (42.0-52.0); HEMOGLOBIN 12.5 g/dl (14.0-18.0); LYMPHOCYTES # 1.8 10^3/ul (0.8-2.9); LYMPHOCYTES % 19.5 % (15.0-51.0); MEAN CORPUSCULAR HGB CONC 32.6 g/dl (32.0-37.0); MEAN CORPUSCULAR VOLUME 88.9 fl (82.0-101.0); MEAN PLATELET VOLUME 10.6 fl (7.4-10.4); MONOCYTE # 0.8 10^3/ul (0.3-0.9); MONOCYTES % 8.4 % (0.0-11.0); NEUTROPHIL # 6.6 10^3/ul (1.6-7.5); NEUTROPHILS % 70.2 % (39.0-77.0); PLATELET COUNT 250 10^3/UL (140-415); RED BLOOD COUNT 4.31 10^6/ul (4.70-6.10); RED CELL DISTRIBUTION WIDTH 12.7 % (11.5-14.5); WHITE BLOOD COUNT 9.4 10^3/ul (4.8-10.8)
[2017-06-28 05:39] LABS: CALCIUM 8.6 mg/dl (8.4-10.2); CREATININE 0.72 mg/dl (0.61-1.24); POTASSIUM 3.8 mmol/L (3.5-5.1)
[2017-06-28] MEDS: SOD CHLORIDE 0.9% 1,000 ML IV SCH ×2 (06:04→21:10)
[2017-06-28 08:23] VITALS: BP 103/59; RESP 18
[2017-06-28] MEDS: LEVOFLOXACIN 500MG/D5W (PMX) 100 ML IVPB SCH (08:28)
[2017-06-28] MEDS: FAMOTIDINE 20 MG TAB PO SCH ×2 (08:30→21:00)
[2017-06-28] MEDS: GUAIFENESIN/DM 5ML CUP PO PRN ×3 (09:19→21:42)
--- NOTE | 2017-06-28 10:53 | PN ---
Date/Time of Note Date/Time of Note DATE: 06/28/17 TIME: 10:49 Assessment/Plan VTE Prophylaxis VTE Prophylaxis Intervention: ambulation Lines/Catheters IV [facility]from [facility] Peripheral IV Urinary Cath still in place: No Assessment/Plan Chief Complaint/Hosp Course 56-year-old male presenting with cough, fever, generalized body ache who found to have pneumonia per imaging. 1. Bronchopneumonia. Clinically improving. -Continue Levaquin, [id number] bronchodilators and cough medications. Follow-up final cultures-so far negative. 2. Status post sepsis with #1. 3. Nicotine abuse. -Cessation advised. 4. Methamphetamine abuse. -Cessation advised. Plan: Follow-up with final cultures. Continue antibiotics. Estimate discharge planning in 24 hours. Patient was seen in collaboration with . Problems: Subjective 24 Hr Interval Summary Free Text/Dictation Patient lying in bed comfortably. He is now tolerating diet. No further nausea , vomiting or cough. Remains afebrile. Exam/Review of Systems Vital Signs Vitals Vital Signs Date Time Temp Pulse Resp B/P Pulse Ox O2 Delivery O2 Flow Rate FiO2 06/28/17 08:23 97.8 85 18 103/59 92 06/28/17 06:17 2.0 06/27/17 20:00 Nasal Cannula Intake and Output 06/27/17 06/27/17 06/28/17 15:00 23:00 07:00 Intake Total 100 ml 920 ml 1250 ml Output Total 900 ml 950 ml Balance 100 ml 20 ml 300 ml Exam General: Thin built, chronically ill looking male, not in any acute distress . HEENT: Normocephalic, Atraumatic, No laceration or hematoma; Eyes: PEERL, Conjunctiva clear, Anicteric sclera Neck: Supple without any lymphadenopathy, nontender, no JVD, no carotid bruits, trachea midline, no thyromegaly Cardiac: S1, S2 auscultated, regular rhythm and rate, no mumurs or gallop Pulmonary: Diminished breath sound bibasilar. Chest clear to auscultation bilaterally, no adventitious breath sounds GI: Abdomen normal to inspection. Soft, non tender, non- distended, no masses, no rebound tenderness or guarding. Bowel sounds active on all four quadrants Genitourinary: Deferred Extremities: No cyanosis, clubbing, or edema. Pulses [2+] bilaterally. Full ROM on all four extremities. No focal weakness appreciated. Neurologic: Alert to person, place, time, and situation. Affect appropriate, intact sensation. Skin: Clean,dry, and intact. No ecchymosis, no rashes, or lesions Results Result Diagram: 06/28/17 0439 06/28/17 0439 Results 24 hrs Laboratory Tests Test 06/28/17 04:39 White Blood Count 9.4 # Red Blood Count 4.31 L Hemoglobin 12.5 L Hematocrit 38.3 L Mean Corpuscular Volume 88.9 Mean Corpuscular Hemoglobin 29.0 Mean Corpuscular Hemoglobin Concent 32.6 Red Cell Distribution Width 12.7 Platelet Count 250 # Mean Platelet Volume 10.6 H Neutrophils % 70.2 Lymphocytes % 19.5 Monocytes % 8.4 Eosinophils % 1.1 Basophils % 0.3 Nucleated Red Blood Cells % 0.0 Neutrophils # 6.6 Lymphocytes # 1.8 Monocytes # 0.8 Eosinophils # 0.1 Basophils # 0.0 Nucleated Red Blood Cells # 0.0 Sodium Level 142 Potassium Level 3.8 Chloride Level 110 Carbon Dioxide Level 27 Anion Gap 9 Blood Urea Nitrogen 9 Creatinine 0.72 Glucose Level 88 Calcium Level 8.6 Magnesium Level 2.0 Medications Medications Current Medications Morphine Sulfate (morphine) 3 mg Q4 PRN IV PAIN Last administered on 06/27/17 17:12; Admin Dose 3 MG; Start 06/27/17 at 01:30 Acetaminophen (Tylenol Tab) 650 mg Q6 PRN PO PAIN AND OR ELEVATED TEMP; Start 06/27/17 at 01:30 Ondansetron HCl 4 mg 4 mg Q6H PRN IV NAUSEA AND/OR VOMITING Last administered on 06/27/17 09:57; Admin Dose 4 MG; Start 06/27/17 at 01:30 Levofloxacin/ Dextrose (Levaquin 500mg/ D5W 100 ml (Pmx)) 100 ml @ 100 mls/hr Q24H IVPB Last administered on 06/28/17 08:28; Admin Dose 100 MLS/HR; Start 06/27/17 at 09:00 Famotidine (Pepcid) 20 mg BID PO Last administered on 06/28/17 08:30; Admin Dose 20 MG; Start 06/27/17 at 09:00 Guaifenesin/ Dextromethorphan 10 ml 10 ml Q4H PRN PO cough Last administered on 06/28/17 09:19; Admin Dose 10 ML; Start 06/27/17 at 10:00 Sodium Chloride (NS) 1,000 ml @ 75 mls/hr [id number] IV Last administered on 06:04; Admin Dose 75 MLS/HR; Start 06/27/17 at 10:00 Metoclopramide HCl (Reglan) 10 mg Q6 IV Last administered on 06/28/17 01:09; Admin Dose 10 MG; Start 06/27/17 at 12:00 Ibuprofen (Motrin) 600 mg Q6H PRN NGT PAIN; Start 06/27/17 at 12:00 DANIELA VELÁZQUEZ V. MILIEU TECHNICIAN Jun 28, 2017 10:53
[2017-06-28 14:19] VITALS: BP 110/62; RESP 18
[2017-06-28 20:23] VITALS: BP 125/60; RESP 20
[2017-06-29 03:14] VITALS: BP 108/65; RESP 20
[2017-06-29 05:54] LABS: BASOPHIL # 0.1 10^3/ul (0.0-0.1); BASOPHILS % 0.6 % (0.0-2.0); EOSINOPHILS # 0.2 10^3/ul (0.0-0.5); EOSINOPHILS % 2.5 % (0.0-7.0); HEMATOCRIT 35.8 % (42.0-52.0); HEMOGLOBIN 11.7 g/dl (14.0-18.0); LYMPHOCYTES # 2.2 10^3/ul (0.8-2.9); LYMPHOCYTES % 26.2 % (15.0-51.0); MEAN CORPUSCULAR HEMOGLOBIN 29.3 pg (29.0-33.0); MEAN CORPUSCULAR HGB CONC 32.7 g/dl (32.0-37.0); MEAN CORPUSCULAR VOLUME 89.5 fl (82.0-101.0); MEAN PLATELET VOLUME 10.5 fl (7.4-10.4); MONOCYTE # 0.9 10^3/ul (0.3-0.9); MONOCYTES % 11.1 % (0.0-11.0); NEUTROPHIL # 4.9 10^3/ul (1.6-7.5); NEUTROPHILS % 58.6 % (39.0-77.0); PLATELET COUNT 327 10^3/UL (140-415); RED CELL DISTRIBUTION WIDTH 12.8 % (11.5-14.5); WHITE BLOOD COUNT 8.4 10^3/ul (4.8-10.8)
[2017-06-29] MEDS: METOCLOPRAMIDE 10 MG INJ IV SCH ×2 (06:00)
[2017-06-29 06:33] LABS: CALCIUM 8.5 mg/dl (8.4-10.2); CREATININE 0.75 mg/dl (0.61-1.24); MAGNESIUM 1.8 mg/dl (1.7-2.5); POTASSIUM 3.5 mmol/L (3.5-5.1)
[2017-06-29] MEDS: GUAIFENESIN/DM 5ML CUP PO PRN (06:37)
[2017-06-29 08:15] VITALS: BP 104/59; RESP 18
--- NOTE | 2017-06-29 08:43 | PDOCDIS ---
Discharge Instructions CONDITION Patient Condition: Stable HOME CARE INSTRUCTIONS: Diet Instructions: Regular FOLLOW UP/APPOINTMENTS Follow-up Plan 1.Follow up with primary care physician in 1 week If you don't have one please let someone know, we can give you resources that may help you pick one. You may also call your insurance company to assign one to you. Review your medication list with your nurse before leaving and if you need new prescriptions please let your nurse know. I may have made changes to your home medications or given you new prescriptions, please let your primary doctor know as well. Stay compliant with your medications and report any side effects to your PCP or pharmacist. Return to the ER if you have any concerns and cannot reach your doctors or call your insurance company, they usually have a nurse that can help you. 2. Call 911 or go to the nearest emergency room if experiencing loss of consciousness, dizziness, chest pain, shortness of breath, vomiting/abdominal pain, speech difficulties, motor weakness or any unusual symptoms. 3. Cessation of Meth use DANIELA VELÁZQUEZ NP Jun 29, 2017 08:43
[2017-06-29] MEDS ORDERED: UDROBDM PO (08:46)
[2017-06-29] MEDS ORDERED: LEVO500T10 PO (08:46)
--- NOTE | 2017-06-29 08:48 | DS ---
Date/Time of Note Date/Time of Note DATE: 06/29/17 TIME: 08:48 Discharge Summary Admission/Discharge Info Admit Date/Time Jun 26, 2017 at 22:27 Discharge Date/Time Discharge Diagnosis 1. Bronchopneumonia. Improved 2. Status post sepsis with #1. 3. Nicotine abuse. 4. Methamphetamine abuse. Patient Condition: Stable Procedures 06/26/2017. Chest x-ray. Pneumonia at the inferior segments of the right upper lobe. Hospital Course This is a 56-year-old male with methamphetamine abuse, nicotine abuse, who presented to the emergency room with complaints of cough, fever and generalized body aches. Chest x-ray showed bronchopneumonia. Patient was also noted with sepsis. Patient was admitted. Patient was continued on Levaquin, wusthh-vvy-twcgy bronchodilators and cough medications. His cultures were negative. Sepsis resolved. He was able to tolerate diet and activities. Patient was counseled on cessation of nicotine and methamphetamine abuse. At this time, patient is feeling back to his baseline. There is no further inpatient workup indicated. Patient is medically stable for discharge on 5 more doses of Levaquin. Disposition: Patient will be discharged home. He was instructed to follow-up with his primary care physician 1 week. Patient verbalized discharge injections. Approximately 60 minutes was spent in coordinating the discharge on this patient. Patient is seen in collaboration with [facility] Active Scripts Levofloxacin* (Levofloxacin*) 500 Mg Tablet, 500 MG PO DAILY for 5 Days, #5 TAB Prov:DANIELA VELÁZQUEZ V. GAME TECHNICIAN 06/29/17 Guaifenesin-Dextromethorphan* (Robitussin* DM) 100MG/10MG/5ML Syrup, 10 ML PO Q4H Y for cough, #1 BOT Prov:DANIELA VELÁZQUEZ V. GAME TECHNICIAN 06/29/17 Hydrocodone/Acetaminophen (Claude 5-325 Tablet) 1 Each Tablet, 1 TAB PO Q6H Y for SEVERE PAIN LEVEL 7-10, #20 TAB Prov:ELI LAZO NP 12/13/16 Ibuprofen* (Motrin*) 600 Mg Tab, 600 MG PO Q6H Y for PAIN AND OR ELEVATED TEMP, #30 TAB Prov:ELI LAZO NP 12/13/16 Discontinued Reported Medications [none] Unknown Strength No Conflict Check 12/13/16 Follow-up Plan 1.Follow up with primary care physician in 1 week If you don't have one please let someone know, we can give you resources that may help you pick one. You may also call your insurance company to assign one to you. Review your medication list with your nurse before leaving and if you need new prescriptions please let your nurse know. I may have made changes to your home medications or given you new prescriptions, please let your primary doctor know as well. Stay compliant with your medications and report any side effects to your PCP or pharmacist. Return to the ER if you have any concerns and cannot reach your doctors or call your insurance company, they usually have a nurse that can help you. 2. Call 911 or go to the nearest emergency room if experiencing loss of consciousness, dizziness, chest pain, shortness of breath, vomiting/abdominal pain, speech difficulties, motor weakness or any unusual symptoms. 3. Cessation of Meth use Primary Care Provider Care Physician No Primary Pending Labs Laboratory Tests Test 06/29/17 04:42 White Blood Count 8.410^3/ul (4.8-10.8) Red Blood Count 4.0010^6/ul (4.70-6.10) Hemoglobin 11.7g/dl (14.0-18.0) Hematocrit 35.8% (42.0-52.0) Mean Corpuscular Volume 89.5fl (82.0-101.0) Mean Corpuscular Hemoglobin 29.3pg (29.0-33.0) Mean Corpuscular Hemoglobin Concent 32.7g/dl (32.0-37.0) Red Cell Distribution Width 12.8% (11.5-14.5) Platelet Count 03008^3/UL (140-415) Mean Platelet Volume 10.5fl (7.4-10.4) Neutrophils % 58.6% (39.0-77.0) Lymphocytes % 26.2% (15.0-51.0) Monocytes % 11.1% (0.0-11.0) Eosinophils % 2.5% (0.0-7.0) Basophils % 0.6% (0.0-2.0) Nucleated Red Blood Cells % 0.0/100WBC (0.0-0.0) Neutrophils # 4.910^3/ul (1.6-7.5) Lymphocytes # 2.210^3/ul (0.8-2.9) Monocytes # 0.910^3/ul (0.3-0.9) Eosinophils # 0.210^3/ul (0.0-0.5) Basophils # 0.110^3/ul (0.0-0.1) Nucleated Red Blood Cells # 0.010^3/ul (0.0-0.0) Sodium Level 143mmol/L (135-144) Potassium Level 3.5mmol/L (3.5-5.1) Chloride Level 109mmol/L (97-110) Carbon Dioxide Level 26mmol/L (21-31) Anion Gap 12 (8-16) Blood Urea Nitrogen 12mg/dl (7-20) Creatinine 0.75mg/dl (0.61-1.24) Glucose Level 84mg/dl (70-220) Calcium Level 8.5mg/dl (8.4-10.2) Magnesium Level 1.8mg/dl (1.7-2.5) DANIELA VELÁZQUEZ NP Jun 29, 2017 08:48 DANIELA VELÁZQUEZ NP Jun 29, 2017 08:48
[2017-06-29] MEDS ORDERED: INFLUENZA VIRUS VACCINE 0.5 ML (DISPENSING) IM* ONE (09:00)
[2017-06-29] MEDS: FAMOTIDINE 20 MG TAB PO SCH (09:00)
[2017-06-29] MEDS: LEVOFLOXACIN 500MG/D5W (PMX) 100 ML IVPB SCH (09:25)
== END 2017-06-29 11:10 | disposition home or self-care (01) | DRG 871 ==
LOC: FTE 19:09 → MS1 22:27
PROVIDERS: ADMIT Internal Medicine; ATTEND Internal Medicine
DX: A41.9 Sepsis, unspecified organism (principal); J18.0 Bronchopneumonia, unspecified organism; F17.210 Nicotine dependence, cigarettes, uncomplicated; F15.10 Other stimulant abuse, uncomplicated
CPT/HCPCS: 36415; 71010; 74176; 80048; 80053; 81001; 83605; 83735; 84100; 84484; 85025; 85610; 85730; 87040; 87070; 87086; 87400; 90686; 93005; 94640; 94664; 96374; 96375; J0456; J0696; J1885; J1956; J2270; J2405; J2765; J7030

== ENCOUNTER 2018-02-12 09:14 | Emergency (ER) | END 2018-02-12 10:05 | disposition home or self-care (01) ==

== ENCOUNTER 2018-02-18 14:01 | Emergency (ER) | END 2018-02-18 15:25 | disposition home or self-care (01) ==

== ENCOUNTER 2018-03-03 13:55 | Emergency (ER) | END 2018-03-03 16:17 | disposition home or self-care (01) ==

== ENCOUNTER 2018-03-30 10:59 | Emergency (ER) | END 2018-03-30 11:48 | disposition home or self-care (01) ==

== ENCOUNTER 2018-06-12 23:25 | Emergency (ER) | END 2018-06-13 04:59 | disposition home or self-care (01) ==

== ENCOUNTER 2018-06-16 10:02 | Emergency (ER) | END 2018-06-16 11:57 | disposition home or self-care (01) ==